=== PATIENT | female | born 2000 | race Caucasian/White ===

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

== ENCOUNTER 2025-01-14 17:58 | Emergency (ER) | payer MEDICAID ==
[~2025-01-14] VITALS: Ht 154.9 cm; Wt 80.3 kg
[2025-01-14 18:16] VITALS: BP 139/87; PULSE 88; RESP 16; O2SAT 98
[2025-01-14] MEDS: LIDOcaine 1% W/epiNEPHrine 1:100,000 20ml vial SQ STA (18:20)
--- NOTE | 2025-01-14 21:55 | Physician Documentation ---
History of Present Illness ~ Chief Complaint: Laceration Stated Complaint: LT ARM LAC Time Seen by MD: 18:20 HPI Patient is seen today with complaints of laceration to her left forearm volar aspect 6 cm in length. Patient states he has a history of cutting and was doing with or coping with difficult feelings today and she cut her left forearm but was not attempting suicide at all. Patient currently denies any suicidal ideation. She has no other concern or complaint at this time. Tetanus Within 5 Years: No Medication Reconciliation Allergies: Coded Allergies: Penicillins (Verified Allergy, Unknown, 06/12/20) Uncoded Allergies: CYSTEX (Allergy, Mild, BLACKED OUT, 01/14/25) Past Medical History Past Medical History: No Pertinent History Past Surgical History: noncontributory Alcohol Use: None Drug Use: none Lives In: Home Review of Systems Constitutional: Denies: chills, fever, weakness Eyes: Denies: pain, blurred vision ENT: Denies: ear pain, nose pain, throat pain, mouth pain Respiratory: Denies: cough, shortness of breath Cardiovascular: Denies: chest pain, palpitations Gastrointestinal: Denies: abdominal pain, nausea, vomiting Genitourinary: Denies: burning, dysuria Female Genitalia: Denies: vaginal discharge, pelvic pain Neurological: Denies: headache, dizziness Musculoskeletal: Denies: pain, swelling Integumentary: Denies: rash, lesions Allergic/Immunologic: Denies: hives, itching Hematologic/Lymphatic: Denies: no symptoms reported Psychiatric: Denies: depression, anxiety Physical Exam Vital Signs: Temperature: 98.0, Source: Temporal, Heart Rate: 88, Respiratory Rate: 16, BP: 139/87, Pulse Oximetry: 98, Weight: 80.350 Oxygen Flow Rate: 0 Physical Exam General: Awake and Alert, no acute distress. HEENT: Conjunctiva pink, Sclera clear, Mucus Membranes moist. Neck: Supple without masses and tenderness. Resp: Unlabored. Lungs clear to auscultation bilaterally. Heart: Regular Rate and rhythm, normal S1 and S2 without murmur, rub or gallop. Musculoskeletal: Patient on exam does have 6 cm laceration to the mid forearm volar aspect without any significant bleeding the down to the subcutaneous fat level. Patient is neurovascularly intact distally. Motor function intact distally. Extremities: No cyanosis,clubbing or edema. Skin: Warm and Dry. Procedures Laceration/Wound Repair Laceration : Procedure Note Procedure note: Patient did have 8 cc of 1% lidocaine with epinephrine to the 6 cm laceration of the volar aspect of the left forearm midshaft. Patient tolerated well. Wound was irrigated with normal saline and iodine mixture and scrubbed and cleansed with copious amounts of iodine and normal saline. 4-0 Ethilon suture using locking running stitch was used to achieve closure. Patient tolerated well. Nonadherent dressing placed over repair site. Progress Results/Orders Results/Orders Completed Orders - ARIELLA JUAREZ Lidocaine 1% W/Epi 1:100,000 (Xylocaine (01/14/25 18:20) Vital Signs 01/14/25 18:16 Temp 98.0 Pulse 88 Resp 16 B/P (MAP) 139/87 Pulse Ox 98 O2 Flow Rate 0 Medical Decision Making Findings Patient is seen today with complaints of laceration to her left forearm volar aspect 6 cm in length. Patient states he has a history of cutting and was doing with or coping with difficult feelings today and she cut her left forearm but was not attempting suicide at all. Patient currently denies any suicidal ideation. She has no other concern or complaint at this time. Running suture was used to close laceration of left volar forearm. Patient tolerated well. Patient will have sutures removed in 7-10 days by urgent care or primary care or return to the ED for suture removal. Patient will follow up with primary care for referral to therapist/psychiatrist for further eval and treatment. Departure Disposition: HOME / SELF CARE / HOMELESS Impression: Primary Impression: Laceration Condition: Improved Discharge Instructions: Laceration Care, Adult, [id number] Additional Instructions: Running suture was used to close laceration of left volar forearm. Patient tolerated well. Patient will have sutures removed in 7-10 days by urgent care or primary care or return to the ED for suture removal. Patient will follow up with primary care for referral to therapist/psychiatrist for further eval and treatment. Referrals: NO PRIMARY CARE PROVIDER (PCP) Signature Scribe Signature: No scribe Attestation: No scribe ARIELLA JUAREZ Jan 14, 2025 21:55
[2025-01-14 22:06] VITALS: TEMP 98
== END 2025-01-14 22:13 | disposition home or self-care (01) ==
LOC: ER 17:58
DX: S51.812A Laceration without foreign body of left forearm, initial encounter (principal); Z88.0 Allergy status to penicillin; W26.8XXA Contact with other sharp object(s), not elsewhere classified, initial encounter; Y93.89 Activity, other specified; Y92.89 Other specified places as the place of occurrence of the external cause; Y99.8 Other external cause status
CPT/HCPCS: 12002; 99282; J7030; A4565; A6258; A6449